=== PATIENT | female | born 1950 | race Caucasian/White ===

== ENCOUNTER 2020-10-14 06:05 | Day surgery (SDC) | payer MEDICARE ==
[2020-10-13 13:04] LABS: COVID AG,FIA SOURCE NASOPHARYNGEAL
[~2020-10-14] VITALS: Ht 157.5 cm; Wt 64.0 kg
[2020-10-14] MEDS ORDERED: SODIUM CHLORIDE 0.9% 1,000 ML IV ONE (06:30)
[2020-10-14] MEDS ORDERED: FentaNYL CITRATE PF 100 MCG/2 ML VIAL ONE (07:30)
[2020-10-14] MEDS ORDERED: MIDAZOLAM HCL 5 MG/ML VIAL ONE (07:31)
[2020-10-14] MEDS ORDERED: FLUT110HFA IH (07:56)
[2020-10-14] MEDS ORDERED: TIOT185 IH (07:56)
[2020-10-14] MEDS ORDERED: ALBU8HFA IH (07:56)
[2020-10-14] MEDS ORDERED: MethylPREDNISolone SOD SUCC 125 MG/2 ML VIAL IVP ONE (09:15)
[2020-10-14] MEDS ORDERED: ALBUTEROL SULFATE 2.5 MG/0.5 ML NEB SOLUTION NEB ONE (17:50)
[2020-10-14] MEDS ORDERED: BENZOCAINE 20% 50 MCG/SPRAY 57 GM ONE (17:50)
[2020-10-14] MEDS ORDERED: LIDOCAINE 2% 30 ML JELLY ONE (17:50)
[2020-10-14] MEDS ORDERED: LIDOCAINE 4% 50 ML SOLUTION ONE (17:50)
[2020-10-14] MEDS ORDERED: OXYGEN THERAPY IH SCH (20:00)
== END 2020-10-14 10:45 | disposition home or self-care (01) ==
LOC: SURGERY 06:05
PROVIDERS: ATTEND Internal Medicine Critical Care Medicine
DX: J38.4 Edema of larynx (principal); B37.0 Candidal stomatitis; F17.210 Nicotine dependence, cigarettes, uncomplicated; Z98.890 Other specified postprocedural states; Z88.8 Allergy status to other drugs, medicaments and biological substances; Z79.899 Other long term (current) drug therapy
CPT/HCPCS: 31623; 31624; 71045; 87015; 87070; 87101; 87205; 87206; 87220; 87426; 88108; 88184; 88185; 88312; C9803; J2250; J2930; J3010; J7613; Z7610